=== PATIENT | female | born 1950 | race Caucasian/White ===

== ENCOUNTER 2017-04-02 10:17 | Emergency (ER) | payer BC, MEDICARE ==
[2017-04-02] MEDS ORDERED: NS 0.9% 1000 ML* 1,000 ML IV ONE (10:46)
[2017-04-02 11:19] LABS: ABS Basophils 0 10^3/ul (0-0.2); ABS Eosinophils 0.1 10^3/ul (0-0.6); ABS Lymphocytes 1.9 10^3/ul (1.0-4.8); ABS Monocytes 0.8 10^3/ul (0-0.8); ABS Neutrophils 6.4 10^3/ul (1.5-7.7); ABS Nucleated RBC 0 10^3/ul; Eosinophil % 0.7 % (0-6); Hematocrit 39 % (35-47); Hemoglobin 13.2 g/dl (12.0-16.0); Lymphocyte % 20.4 % (25-47); Mean Corpuscular HGB Conc 34 g/dl (31-36); Mean Corpuscular Hemoglobin 31 pg (27-31); Mean Corpuscular Volume 91 fL (80-97); Mean Platelet Volume 8 um3 (7.4-10.4); Nucleated Red Blood Cells % 0; Platelet Count 257 10^3/ul (150-450); Red Blood Count 4.29 10^6/ul (4.0-5.4); Red Cell Distribution Width 13 % (10.5-15); White Blood Count 9.2 10^3/ul (3.5-10.8)
[2017-04-02] MEDS ORDERED: Morphine INJ* 4 MG/ML 1 ML CARPUJECT IV ONE (11:26)
[2017-04-02] MEDS ORDERED: Ondansetron INJ* 2 MG/ML VIAL IV ONE (11:26)
[2017-04-02 11:34] LABS: EGFR Non-African American 84.9 (>60)
[2017-04-02] MEDS ORDERED: Iodixanol* (CONTRAST) 320 MG/ML 100 ML SDV IV ONE (12:21)
[2017-04-02 12:51] LABS: Urine Appearance Clear; Urine Blood 1+ (Negative); Urine Color Colorless; Urine Ketones Negative (Negative); Urine Protein Negative (Negative); Urine Specific Gravity 1.002 (1.010-1.030); Urine Urobilinogen Negative (Negative)
--- NOTE | 2017-04-02 13:43 | RAD ---
INDICATION: Abdominal pain LEFT lower quadrant with progressive worsening. Diabetic. COMPARISON: No relevant prior exams available on the [facility] [place] [facility] PACS for comparison. TECHNIQUE: Multidetector CT images were obtained from the lung bases to the ischial tuberosities with 81 mL Visipaque 320 October 30, 2006 RIGHT upper quadrant ultrasound. IV and oral contrast. Multiplanar reformation. REPORT: Unremarkable visualized inferior thorax. The liver, gallbladder, pancreas, and spleen are unremarkable. Moderate hiatal hernia. No additional abnormality of the upper GI, small bowel, or retrocecal appendix. A few colonic diverticula are visualized. No evidence for acute diverticulitis. Negative for ascites, free air, hernias. Normal adrenal glands. Symmetric nephrograms and pyelograms. No suspicious focal renal lesions or hydronephrosis. Unremarkable nondilated ureters and urinary bladder. Unremarkable uterus and adnexal regions. Negative for lymphadenopathy. Normal diameter abdominal aorta and iliac arteries with mild atherosclerotic plaque. Physiologic distention of the IVC. Asymmetric mildly heterogeneous density thickening of the LEFT rectus abdominis muscle inferiorly measuring up to 3 cm AP compared with 1.1 cm on the contralateral side. Negative for acute fracture or suspicious focal osseous lesion. Schmorl node endplate herniations at the lower thoracic spine. Degenerative spondylosis and facet joint osteoarthritis. Negative for suspicious focal osseous lesions. IMPRESSION: 1. Moderate hiatal hernia. Mild colonic diverticulosis without findings of diverticulitis. 2. Asymmetric mildly heterogeneous density thickening of the LEFT rectus abdominis muscle inferiorly measuring up to 3 cm AP compared with 1.1 cm on the contralateral side. Consider intramuscular hematoma or less likely infectious myositis or sarcoma. Correlate with clinical assessment.
[2017-04-02 14:57] VITALS: BP 142/72
--- NOTE | 2017-04-02 17:10 | ED ---
Rajendra Bennett Alfonso, scribed for Adam Chatterjee MD on 04/02/17 at 1138 . Abdominal Pain/Female - HPI Summary HPI Summary: This patient is a 66 year old F presenting to [facility] with a chief complaint of LLQ abdominal pain gradually worsening since 2 days ago. The patient rates the pain 9/10 in severity. Symptoms aggravated by palpation. Symptoms alleviated by nothing. Patient denies N/V/D, constipation, and back pain. Patient reports that she has not had this pain before, and that it does not feel like her previous kidney stones. - History of Current Complaint Chief Complaint: EDAbdPain Stated Complaint: LOWER ABD PAIN Time Seen by Provider: 04/02/17 10:38 Hx Obtained From: Patient Hx Last Menstrual Period: post menapause Onset/Duration: Gradual Onset, Lasting Days - 2, Still Present, Worse Since Timing: Constant Severity Currently: Severe Pain Intensity: 9 Pain Scale Used: 0-10 Numeric Location: Discrete At: LLQ Aggravating Factor(s): Other: - Palpation Alleviating Factor(s): Nothing Associated Signs and Symptoms: Positive: Other: - Patient denies N/V/D, constipation, and back pain. Allergies/Adverse Reactions: Allergies Allergy/AdvReac Type Severity Reaction Status Date / Time Nitrofurantoin Allergy Swelling Verified 04/02/17 10:23 [From Macrodantin] Penicillins Allergy Swelling Verified 04/02/17 10:23 PMH/Surg Hx/FS Hx/Imm Hx Endocrine/Hematology History: Reports: Hx Diabetes Cardiovascular History: Reports: Hx Hypertension History: Reports: Hx Kidney Stones Opthamlomology History: Denies: Hx Legally Blind EENT History: Denies: Hx Deafness - Surgical History Surgery Procedure, Year, and Place: fallopian tube 1982. c- section 1989 Infectious Disease History: No Infectious Disease History: Denies: Traveled Outside the [place] in Last 30 Days - Family History Known Family History: Positive: Other - cancer Negative: Cardiac Disease, Hypertension, Diabetes - Social History Alcohol Use: Weekly Hx Substance Use: No Substance Use Type: Reports: None Hx Tobacco Use: No Smoking Status (MU): Never Smoked Tobacco Review of Systems Negative: Fever Positive: Abdominal Pain, Other - Negative constipation. Negative: Vomiting, Diarrhea, Nausea Positive: Other - Negative back pain All Other Systems Reviewed And Are Negative: Yes Physical Exam - Summary Physical Exam Summary: VITAL SIGNS: Reviewed. GENERAL: Patient is a well-developed and nourished female who is lying comfortable in the stretcher. Patient is not in any acute respiratory distress. HEAD AND FACE: Normocephalic and atraumatic. EYES: PERRLA, EOMI x 2, No injected conjunctiva. EARS: Hearing grossly intact. Ear canals and tympanic membranes are WNL. MOUTH: Oropharynx within normal limits. NECK: Supple, trachea is midline, no adenopathy, no JVD. CHEST: Symmetric, no tenderness at palpation LUNGS: Clear to auscultation bilaterally. No wheezing or crackles. CVS: RRR, S1 and S2 present, no murmurs or gallops appreciated. ABDOMEN: Soft, LLQ tender. No signs of distention. Positive bowel sounds. No rebound. Guarding. No masses palpated. No abdominal bruit or pulsations. EXTREMITIES: FROM in all major joints, no edema, no cyanosis or clubbing. NEURO: Alert and oriented x 3. No acute neurological deficits. Speech is normal. SKIN: Dry and warm Triage Information Reviewed: Yes Vital Signs On Initial Exam: Initial Vitals Temp Pulse Resp BP Pulse Ox 98.3 F 84 16 155/79 99 04/02/17 10:21 04/02/17 10:21 04/02/17 10:21 04/02/17 10:21 04/02/17 10:21 Vital Signs Reviewed: Yes - Fredy Coma Scale Coma Scale Total: 15 Diagnostics - Vital Signs Vital Signs Temp Pulse Resp BP Pulse Ox 04/02/17 11:31 18 04/02/17 11:09 98 04/02/17 10:51 78 98 04/02/17 10:48 146/74 04/02/17 10:21 98.3 F 84 16 155/79 99 - Laboratory Lab Results: Lab Results 04/02/17 04/02/17 04/02/17 Range/Units 11:11 11:11 11:11 WBC 9.2 (3.5-10.8) 10^3/ul RBC 4.29 (4.0-5.4) 10^6/ul Hgb 13.2 (12.0-16.0) g/dl Hct 39 (35-47) % MCV 91 (80-97) fL MCH 31 (27-31) pg MCHC 34 (31-36) g/dl RDW 13 (10.5-15) % Plt Count 257 (150-450) 10^3/ul MPV 8 (7.4-10.4) um3 Neut % (Auto) 69.6 (38-83) % Lymph % (Auto) 20.4 L (25-47) % [place] % (Auto) 8.9 (1-9) % Eos % (Auto) 0.7 (0-6) % Baso % (Auto) 0.4 (0-2) % Absolute Neuts (auto) 6.4 (1.5-7.7) 10^3/ul Absolute Lymphs (auto) 1.9 (1.0-4.8) 10^3/ul Absolute Monos (auto) 0.8 (0-0.8) 10^3/ul Absolute Eos (auto) 0.1 (0-0.6) 10^3/ul Absolute Basos (auto) 0 (0-0.2) 10^3/ul Absolute Nucleated RBC 0 10^3/ul Nucleated RBC % 0 Sodium 137 (133-145) mmol/L Potassium Pending Chloride 101 (101-111) mmol/L Carbon Dioxide 28 (22-32) mmol/L Anion Gap Pending BUN 10 (6-24) mg/dL Creatinine 0.69 (0.51-0.95) mg/dL Est GFR ( Amer) 109.1 (>60) Est GFR (Non-Af Amer) 84.9 (>60) BUN/Creatinine Ratio 14.5 (8-20) Glucose 95 (70-100) mg/dL Lactic Acid 0.9 (0.5-2.0) mmol/L Calcium 9.8 (8.6-10.3) mg/dL Total Bilirubin 1.10 H (0.2-1.0) mg/dL AST Pending ALT 19 (7-52) U/L Alkaline Phosphatase 73 (34-104) U/L C-Reactive Protein 7.13 H (< 5.00) mg/L Total Protein 7.2 (6.4-8.9) g/dL Albumin 4.2 (3.2-5.2) g/dL Globulin 3.0 (2-4) g/dL Albumin/Globulin Ratio 1.4 (1-3) Lipase 38 (11.0-82.0) U/L TSH Pending Result Diagrams: 04/02/17 11:11 04/02/17 12:40 Lab Statement: Any lab studies that have been ordered have been reviewed, and results considered in the medical decision making process. - CT A/P CT Interpretation Completed By: Radiologist - 1. Moderate hiatal hernia. Mild colonic diverticulosis without findings of diverticulitis. 2. Asymmetric mildly heterogeneous density thickening of the LEFT rectus abdominis muscle inferiorly measuring up to 3 cm AP compared with 1.1 cm on the contralateral side. Consider intramuscular hematoma or less likely infectious myositis or sarcoma. Correlate with clinical assessment. ED physician has reviewed this radiology report. - EKG 1105 Cardiac Rate: NL EKG Rhythm: Sinus Rhythm - 73 BPM EKG Interpretation: No ST elevation. Abdominal Pain Fem Course/Dx - Course Course Of Treatment: This patient is a 66 year old F presenting to [facility] with a chief complaint of LLQ abdominal pain gradually worsening since 2 days ago. The patient rates the pain 9/10 in severity. Symptoms aggravated by palpation. Symptoms alleviated by nothing. Patient denies N/V/D, constipation, and back pain. Patient reports that she has not had this pain before, and that it does not feel like her previous kidney stones. Test results with no significant abnormalities. Urinalysis negative for UTI. An EKG reveals BPM at [address] elevation[address] CT A/P reveals, per radiologist, 1. Moderate hiatal hernia. Mild colonic diverticulosis without findings of diverticulitis. 2. Asymmetric mildly heterogeneous density thickening of the LEFT rectus abdominis muscle inferiorly measuring up to 3 cm AP compared with 1.1 cm on the contralateral side. Consider intramuscular hematoma or less likely infectious myositis or sarcoma. Correlate with clinical assessment. ED physician has reviewed this radiology report. It seems the LLQ pain is secondary to her hematoma. There are no signs of diverticulitis or kidney stone. The patient reports that she usually works out every day and for the last month hasnt due to an ankle injury. 2 days ago she went to the gym and worked out heavily, and when she was doing a stair climbing exercise, she developed this sever pain immediately. Therefore, I believe this is the cause of her symptoms. The patient was told to take Tylenol and apply ice intermittently with warm compressed. She declined any other medications. I offered the patient a pelvic exam and she declined. Therefore, the patient will be discharged with follow up from PCP. The patient is agreeable with this plan. The patient is hemodynamically stable, alert and oriented x3. - Diagnoses Differential Diagnosis: Positive: Constipation, Diverticulitis, Ovarian Cyst, Pancreatitis, Renal Colic, Urinary Tract Infection Provider Diagnoses: Abdominal hematoma, LLQ abdominal pain Discharge - Discharge Plan Condition: Stable Disposition: HOME Patient Education Materials: Abdominal Pain (ED), Hematoma (ED) Referrals: Mindy Olivier MD [Primary Care Provider] - 3 Days Additional Instructions: RETURN TO THE EMERGENCY DEPARTMENT FOR CHANGING OR WORSENING SYMPTOMS. The documentation as recorded by the Rajendra emerson Alfonso accurately reflects the service I personally performed and the decisions made by , Adam Chatterjee MD.
== END 2017-04-02 14:57 | disposition home or self-care (01) ==
LOC: ED 10:17 → MERGE 10:17 → ED 14:57
DX: R10.32 Left lower quadrant pain (principal); S30.1XXA Contusion of abdominal wall, initial encounter; E11.9 Type 2 diabetes mellitus without complications; I10 Essential (primary) hypertension; Z87.442 Personal history of urinary calculi; Z88.0 Allergy status to penicillin; X58.XXXA Exposure to other specified factors, initial encounter; Y92.9 Unspecified place or not applicable
CPT/HCPCS: 36415; 74177; 80053; 81003; 81015; 83605; 83690; 84443; 85025; 86140; 93005; 99283; J2270; J2405

== ENCOUNTER 2017-05-10 20:43 | Emergency (ER) | payer BC, MEDICARE ==
[2017-05-10 20:56] VITALS: BP 146/79
== END 2017-05-10 22:25 | disposition left against medical advice (07) ==
LOC: ED 20:43
DX: R10.9 Unspecified abdominal pain (principal); Z53.21 Procedure and treatment not carried out due to patient leaving prior to being seen by health care provider

== ENCOUNTER 2018-11-02 05:09 | Emergency (ER) | payer BC, MEDICARE ==
--- NOTE | 2018-11-02 05:41 | ED ---
Abdominal Pain/Female - HPI Summary HPI Summary: Patient is a 68-year-old female who presents emergency department for right upper quadrant abdominal pain that started yesterday. Pain occasionally radiates into back and shoulder. Patient denies chest pain, shortness of breath , fever, vomiting, diarrhea. Past medical history of diabetes, hypertension. Surgical history of . Patient notes that pain has become more constant and severe today and is worse with movement. Symptoms are moderate in severity. - History of Current Complaint Chief Complaint: EDAbdPain Stated Complaint: PAIN UNDER R BREAST PER PT Time Seen by Provider: 11/02/18 05:35 Hx Obtained From: Patient Hx Last Menstrual Period: post menapause Pain Intensity: 10 Allergies/Adverse Reactions: Allergies Allergy/AdvReac Type Severity Reaction Status Date / Time nitrofurantoin Allergy Swelling Verified 11/02/18 05:15 [From Macrodantin] Penicillins Allergy Anaphylatic Verified 11/02/18 05:16 Shock Home Medications: Home Medications Aspirin 81 mg PO DAILY 11/02/18 [History Confirmed 11/02/18] Atorvastatin* [Lipitor*] 40 mg PO QPM 11/02/18 [History Confirmed 11/02/18] Dulaglutide [Trulicity] 0.75 mg SQ DAILY 11/02/18 [History Confirmed 11/02/18] Losartan TAB* [Cozaar TAB*] 50 mg PO DAILY 11/02/18 [History Confirmed 11/02/18] Metformin HCl [Fortamet] 500 mg PO DAILY 11/02/18 [History Confirmed 11/02/18] PMH/Surg Hx/FS Hx/Imm Hx Previously Healthy: Yes Endocrine/Hematology History: Reports: Hx Diabetes Cardiovascular History: Reports: Hx Hypertension History: Reports: Hx Kidney Stones Denies: Hx Renal Disease Sensory History: Denies: Hx Legally Blind, Hx Deafness Opthamlomology History: Denies: Hx Legally Blind - Surgical History Surgery Procedure, Year, and Place: fallopian tube 1982. c- section 1989 - Immunization History Date of Tetanus Vaccine: unk Date of Influenza Vaccine: fall 2017 Infectious Disease History: No Infectious Disease History: Denies: Traveled Outside the [place] in Last 30 Days - Family History Known Family History: Positive: Other - cancer, Non-Contributory Negative: Cardiac Disease, Hypertension, Diabetes - Social History Occupation: Retired Lives: With Family Alcohol Use: Weekly Hx Substance Use: No Substance Use Type: Reports: None Hx Tobacco Use: No Smoking Status (MU): Never Smoked Tobacco Review of Systems Constitutional: Negative Negative: Fever, Chills Cardiovascular: Negative Negative: Palpitations, Chest Pain Respiratory: Negative Negative: Shortness Of Breath, Cough Positive: Abdominal Pain. Negative: Vomiting, Diarrhea, Nausea Genitourinary: Negative Neurological: Negative All Other Systems Reviewed And Are Negative: Yes Physical Exam Triage Information Reviewed: Yes Vital Signs On Initial Exam: Initial Vitals Temp Pulse Resp BP Pulse Ox 97.6 F 82 16 174/100 97 11/02/18 05:10 11/02/18 05:10 11/02/18 05:10 11/02/18 05:10 11/02/18 05:10 Vital Signs Reviewed: Yes Appearance: Positive: Well-Appearing - Pt. sitting up in bed in NAD. Skin: Positive: Warm, Dry Head/Face: Positive: Normal Head/Face Inspection Neck: Positive: Supple Respiratory/Lung Sounds: Positive: Clear to Auscultation, Breath Sounds Present Cardiovascular: Positive: Normal, RRR Abdomen Description: Positive: Other: - Abd. is soft with tenderness to the RUQ. Slightly positive tamayo sign. Neurological: Positive: Normal, CN Intact II-III Psychiatric: Positive: Affect/Mood Appropriate Diagnostics - Vital Signs Vital Signs Temp Pulse Resp BP Pulse Ox 11/02/18 05:35 76 98 11/02/18 05:34 76 154/96 99 11/02/18 05:10 97.6 F 82 16 174/100 97 - Laboratory Result Diagrams: 11/02/18 05:55 11/02/18 05:55 Lab Statement: Any lab studies that have been ordered have been reviewed, and results considered in the medical decision making process. Abdominal Pain Fem Course/Dx - Course Course Of Treatment: Pt. presenting for RUQ pain. She is afebrile with stable VS. Pt. declines pain medication. ECG done at 0548 shows a sinus rhythm of 72bpm , normal axis, no STEMI. Will obtain labs and GB u.s. Labs are unremarkable. U/ A shows small RBCs, no signs of infection. GB u.s is negative for acute findings including no signs of hydro, per radiology. CXR negative for acute findings. Unclear of pain etiology but r/o emergent concerns. Results discussed. Pt. is upset and frustrated that test are all normal. Pain has only been present since yesterday. Suspect muscular. Advised NSAIDS, ice/heat. Advised to f.u with PCP on Monday if pain persist for further evaluation. Will return to ER if sxs change or worsen. - Diagnoses Differential Diagnosis: Positive: Appendicitis, Bowel Obstruction, Constipation , Gall Bladder Disease, Hepatitis, Renal Colic, Urinary Tract Infection Provider Diagnoses: Abdominal pain Discharge - Sign-Out/Discharge Documenting (check all that apply): Patient Departure Patient Received Moderate/Deep Sedation with Procedure: No - Discharge Plan Condition: Good Disposition: HOME Patient Education Materials: Acute Abdominal Pain (ED) Referrals: Mindy Olivier MD [Primary Care Provider] - Additional Instructions: Schedule a follow up appointment with PCP in 2-3 days if pain persist Tylenol or Motrin for pain as directed Apply warm or cool compress Return to ER if symptoms change or worsen - Billing Disposition and Condition Condition: GOOD Disposition: Home
[2018-11-02] MEDS ORDERED: NS 0.9% 1000 ML** 1,000 ML IV ONE (05:52)
[2018-11-02 06:03] LABS: ABS Eosinophils 0.1 10^3/ul (0-0.6); ABS Lymphocytes 1.6 10^3/ul (1.0-4.8); ABS Monocytes 0.6 10^3/ul (0-0.8); Eosinophil % 2.5 %; Hematocrit 39 % (35-47); Hemoglobin 13.3 g/dL (12.0-16.0); Mean Corpuscular HGB Conc 34 g/dL (31-36); Mean Corpuscular Hemoglobin 30 pg (27-31); Mean Corpuscular Volume 88 fL (80-97); Mean Platelet Volume 7.5 fL (7.4-10.4); Nucleated Red Blood Cells % 0.1; Platelet Count 283 10^3/uL (150-450); Red Blood Count 4.38 10^6 /uL (3.70-4.87); Red Cell Distribution Width 14 % (10-15); White Blood Count 5.3 10^3/uL (3.5-10.8)
[2018-11-02 06:25] LABS: ALT 13 U/L (7-52); AST 18 U/L (13-39); Albumin/Globulin Ratio 1.3 (1-3); Alkaline Phosphatase 70 U/L (34-104); Anion Gap 6 mmol/L (2-11); BUN/Creatinine Ratio 23.4 (8-20); Blood Urea Nitrogen 18 mg/dL (6-24); C Reactive Protein < 1.00 mg/L (<8.01); CO2 Carbon Dioxide 27 mmol/L (22-32); Calcium 9.2 mg/dL (8.6-10.3); Chloride 106 mmol/L (101-111); EGFR African American 89.9 (>60); EGFR Non-African American 74.3 (>60); Glucose 114 mg/dL (70-100); Potassium 3.8 mmol/L (3.5-5.0); Sodium 139 mmol/L (135-145)
[2018-11-02 07:32] LABS: Urine Appearance Clear; Urine Bacteria Absent (Absent); Urine Bilirubin Negative (Negative); Urine Blood 2+ (Negative); Urine Color Yellow; Urine Glucose Negative (Negative); Urine Ketones Negative (Negative); Urine Nitrite Negative (Negative); Urine Protein Negative (Negative); Urine Red Blood Cell 1+(3-5/hpf) (Absent); Urine Specific Gravity 1.014 (1.010-1.030); Urine Squamous Epithelial Cell Present (Absent); Urine Urobilinogen Negative (Negative); Urine White Blood Cell Trace(0-5/hpf) (Absent)
[2018-11-02 09:22] VITALS: BP 138/69
== END 2018-11-02 09:21 | disposition home or self-care (01) ==
LOC: ED 05:09
DX: R10.11 Right upper quadrant pain (principal); E11.9 Type 2 diabetes mellitus without complications; I10 Essential (primary) hypertension; Z88.1 Allergy status to other antibiotic agents; Z88.0 Allergy status to penicillin; Z79.82 Long term (current) use of aspirin; Z79.899 Other long term (current) drug therapy; Z79.84 Long term (current) use of oral hypoglycemic drugs
CPT/HCPCS: 36415; 71045; 76705; 80053; 81003; 81015; 83605; 83690; 83735; 84484; 85025; 86140; 87086; 93005; 96360; 99283